=== PATIENT | male | born 1975 | race Caucasian/White ===

== ENCOUNTER → 2017-06-03 | Outpatient (CLI) | payer MEDICARE | LOC: KOH-I 11:44 | DX: M54.2 Cervicalgia (principal); M54.9 Dorsalgia, unspecified; R05 Cough | CPT/HCPCS: 71020; 72050; 72070; 72110 ==

== ENCOUNTER 2021-01-10 18:58 | Emergency (ER) | payer OTHER ==
[~2021-01-10 18:58] MED LIST: ADVAIR 250-501 EACH INH; ALDACTONE50 MG PO; CIPRO500 MG PO; CLARITIN 10MG T10 MG PO; COLACE 100MG C100 MG PO; CORGARD 40MG TA40 MG PO; FEOSOL325 MG PO; FUROSEMIDE40 MG PO; GABAPENTIN400 MG PO; HYDROCHLOROTHIA25 MG PO; LASIX20 MG PO; LEVOTHYROXINE150 MCG PO; NEURONTIN 400400 MG PO; PRINIVIL20 MG PO; PROTONIX40 MG PO; SUBOXONE 8 MG-1 EACH SL; SYNTHROID150 MCG PO; THERAGRAN M TAB1 EA PO; VENTOLIN HFA 66.7 GM INH
== END 2021-01-10 20:48 | disposition home or self-care (01) ==
LOC: ER1 18:58
DX: S61.211A Laceration without foreign body of left index finger without damage to nail, initial encounter (principal); J44.9 Chronic obstructive pulmonary disease, unspecified; Z86.19 Personal history of other infectious and parasitic diseases; Z88.8 Allergy status to other drugs, medicaments and biological substances; F17.210 Nicotine dependence, cigarettes, uncomplicated; W26.0XXA Contact with knife, initial encounter; Y92.009 Unspecified place in unspecified non-institutional (private) residence as the place of occurrence of the external cause
CPT/HCPCS: 12001; 73140; 99283

== ENCOUNTER → 2021-02-17 | Outpatient (CLI) | payer OTHER | LOC: LAB 15:06 | DX: G60.8 Other hereditary and idiopathic neuropathies (principal); E55.9 Vitamin D deficiency, unspecified; E53.1 Pyridoxine deficiency; E51.9 Thiamine deficiency, unspecified; G25.81 Restless legs syndrome; G89.29 Other chronic pain; R79.89 Other specified abnormal findings of blood chemistry | CPT/HCPCS: 82607; 82728; 82746; 83735; 84207; 84425 ==

== ENCOUNTER 2021-02-19 09:47 | Emergency (ER) | payer OTHER ==
[2021-02-19 10:29] LABS: HEMOGLOBIN 6.7 gm/dl (14.0-17.5); RED BLOOD COUNT 2.77 M/UL (4.20-5.50); WHITE BLOOD COUNT 9.4 K/UL (4.5-11.0)
[2021-02-19 10:50] LABS: BUN/CREATININE RATIO 27 (0-10)
== END 2021-02-19 13:55 | disposition other institution (70) ==
LOC: ER1 09:47
PROVIDERS: Emergency Medicine
DX: K92.2 Gastrointestinal hemorrhage, unspecified (principal); D64.9 Anemia, unspecified; K74.60 Unspecified cirrhosis of liver; E03.9 Hypothyroidism, unspecified; F17.200 Nicotine dependence, unspecified, uncomplicated
CPT/HCPCS: 36430; 80053; 82550; 82553; 83874; 84484; 85025; 85610; 85730; 86850; 86900; 86901; 86902; 86920; 86922; 93005; 96374; 96375; 96376; 99284; C9113; J2354; P9016

== ENCOUNTER 2021-06-07 22:21 | Inpatient (IN) | payer OTHER ==
[~2021-06-07] VITALS: Ht 182.9 cm; Wt 120.7 kg
[2021-06-07 22:58] LABS: HEMOGLOBIN 13.1 gm/dl (14.0-17.5); RED BLOOD COUNT 4.62 M/UL (4.20-5.50)
[2021-06-07 23:18] LABS: BUN/CREATININE RATIO 27 (0-10)
[2021-06-08] MEDS ORDERED: NEURONTIN800 MG PO (11:03)
[2021-06-08] MEDS ORDERED: CARAFATE1 GM PO (11:04)
[2021-06-09 06:35] LABS: HEMOGLOBIN 12.2 gm/dl (14.0-17.5); RED BLOOD COUNT 4.3 M/UL (4.20-5.50)
[2021-06-09 06:36] LABS: WHITE BLOOD COUNT 6.1 K/UL (4.5-11.0)
[2021-06-09 07:17] LABS: BUN/CREATININE RATIO 28 (0-10)
[2021-06-10 07:02] LABS: HEMOGLOBIN 12.1 gm/dl (14.0-17.5); RED BLOOD COUNT 4.33 M/UL (4.20-5.50)
[2021-06-10 08:16] LABS: WHITE BLOOD COUNT 7.8 K/UL (4.5-11.0)
[2021-06-10 08:21] LABS: BUN/CREATININE RATIO 25 (0-10)
[2021-06-10] MEDS ORDERED: LEVOFLOXACIN750 MG PO (11:32)
--- NOTE | 2021-06-10 14:20 | NUR ---
Notified Dr. Lopez about pt stated he was allergic to Levaquin. Dr. Lopez said he would change it. I have also updated it as a new allergy.
[2021-06-10] MEDS ORDERED: DOXYCYCLINE HY100 MG PO (14:34)
== END 2021-06-10 14:15 | disposition home or self-care (01) | DRG 194 ==
LOC: ER1 22:21 → MED SURG 4 06-08 04:26 → CDU 06-08 04:26 → MED SURG 4 06-08 18:47
PROVIDERS: Emergency Medicine; Internal Medicine; ADMIT Internal Medicine
DX: J18.9 Pneumonia, unspecified organism (principal); D61.818 Other pancytopenia; Z20.822 Contact with and (suspected) exposure to COVID-19; E03.9 Hypothyroidism, unspecified; B19.20 Unspecified viral hepatitis C without hepatic coma; F17.210 Nicotine dependence, cigarettes, uncomplicated; K74.60 Unspecified cirrhosis of liver; K80.20 Calculus of gallbladder without cholecystitis without obstruction; Z88.1 Allergy status to other antibiotic agents; Z82.49 Family history of ischemic heart disease and other diseases of the circulatory system
CPT/HCPCS: 36415; 36600; 71045; 80048; 80053; 82550; 82553; 82803; 83605; 83874; 84484; 85025; 85379; 87040; 87081; 93005; 96365; 99285; J1335; J1650; Q9967; U0002

== ENCOUNTER → 2022-03-24 | Outpatient (CLI) | payer OTHER ==
[~2022-03-24] MED LIST changes: +CARAFATE1 GM PO; +DOXYCYCLINE HY100 MG PO; +LEVOFLOXACIN750 MG PO; +NEURONTIN800 MG PO
== END ==
LOC: KOH-I 03-19 11:00
DX: K85.90 Acute pancreatitis without necrosis or infection, unspecified (principal); K74.60 Unspecified cirrhosis of liver; R16.1 Splenomegaly, not elsewhere classified; R18.8 Other ascites; K76.6 Portal hypertension
CPT/HCPCS: 74176